=== PATIENT | female | born 1985 | race Caucasian/White ===

== ENCOUNTER 2018-04-29 19:01 | Emergency (ER) | payer MEDICAID ==
[2018-04-29 19:09] VITALS: BP 125/88; PULSE 85; RESP 18; TEMP 99.2; O2SAT 97
--- NOTE | 2018-04-29 19:10 | C.PDOC ---
History Of Present Illness 32 year old female presents to the ED complaining of left upper dental molar pain. Reports she had a dental fracture a few months ago and has a pending dental follow up. States she was seen at another institution last week and was prescribed antibiotics and Tramadol but she ran out of Tramadol. Notes she has been actively looking for a dental visit. Time Seen by Provider: 04/29/18 19:07 Chief Complaint (Nursing): Dental Pain History Per: Patient History/Exam Limitations: no limitations Onset/Duration Of Symptoms: Days Current Symptoms Are (Timing): Still Present Quality: Positive for: "Pain" Past Medical History Reviewed: Historical Data, Nursing Documentation, Vital Signs - Medical History PMH: No Chronic Diseases Surgical History: Appendectomy (2007) Family History: States: No Known Family Hx - Social History Hx Tobacco Use: No Hx Alcohol Use: No Hx Substance Use: No - Immunization History Hx Tetanus Toxoid Vaccination: No Hx Influenza Vaccination: No Hx Pneumococcal Vaccination: No Review Of Systems Except As Marked, All Systems Reviewed And Found Negative. Constitutional: Negative for: Fever, Chills ENT: Positive for: Other (left upper molar pain ). Negative for: Ear Pain, Throat Pain Physical Exam - Physical Exam Appears: Non-toxic, In Acute Distress (due to dental pain ), Other (obese female ) Skin: Warm, Dry Head: Normacephalic Eye(s): bilateral: Normal Inspection, PERRL, EOMI Ear(s): Bilateral: Normal Nose: Normal Oral Mucosa: Moist Tongue: Normal Appearing Lips: Normal Appearing Teeth: No Normal Dentition (poor dentition ), Other (dental fracture to left upper molar ) Throat: Normal, No Erythema, No Exudate Neck: Supple Chest: Symmetrical Extremity: Normal ROM Neurological/Psych: Oriented x3, Normal Speech Gait: Steady ED Course And Treatment O2 Sat by Pulse Oximetry: 97 (RA) Pulse Ox Interpretation: Normal Medical Decision Making Medical Decision Making: Plan - Motrin 600mg PO - Tramadol 50mg PO dentalgia dental fracture seen for same 8 days ago pending dental f/u. Disposition Doctor Will See Patient In The: Office Counseled Patient/Family Regarding: Studies Performed, Diagnosis - Disposition Referrals: [facility] [Outside] [facility] [Outside] [facility] [Outside] [facility] [Outside] Disposition: HOME/ ROUTINE Disposition Time: 19:15 Condition: GOOD Additional Instructions: continue amoxicillin twice daily as previously prescribed Motrin 600 every 6 hours as needed Pepcid 20 mg @ night to prevent stomach irritation from the Motrin and Penicillin Dental eval and intervention [facility]. [facility]. Narcotic pain relievers may not be refilled in the ED. Prescriptions: traMADol [Ultram] 50 mg PO Q6H PRN #12 tab PRN Reason: pain Instructions: Dental Pain (DC) Forms: [employer] (Frisian) - Clinical Impression Clinical Impression: Dentalgia - Scribe Statement The provider has reviewed the documentation as recorded by the Scribe Christianne Bang All medical record entries made by the Domibe were at my direction and personally dictated by me. I have reviewed the chart and agree that the record accurately reflects my personal performance of the history, physical exam, medical decision making, and the department course for this patient. I have also personally directed, reviewed, and agree with the discharge instructions and disposition.
== END 2018-04-29 19:26 | disposition home or self-care (01) ==
LOC: C.ER 19:01
DX: K08.89 Other specified disorders of teeth and supporting structures (principal)